=== PATIENT | female | born 1980 | race Caucasian/White ===

== ENCOUNTER → 2021-03-01 | Outpatient (CLI) | payer BC ==
--- NOTE | 2021-03-01 09:57 | RAD ---
EXAM: Right foot, 3 views; right ankle, 3 views. HISTORY: Rolled ankle. Pain. COMPARISON: None. FINDINGS: 3 views of the right foot and ankle are obtained. There is no fracture, dislocation or subl uxation. There is a tiny plantar spur. There is enthesopathy at the Achilles tendon insertion. The an kle mortise is intact. There is no osteochondral lesion. IMPRESSION: No acute osseous finding. Electronically signed by: Jolly Mason MD (03/01/2021 9:54 AM) [id number]
== END ==
LOC: RAD 09:30
PROVIDERS: ATTEND Family Medicine
DX: M77.51 Other enthesopathy of right foot and ankle (principal); M25.571 Pain in right ankle and joints of right foot
CPT/HCPCS: 73610; 73630